=== PATIENT | female | born 1975 | race Caucasian/White ===

== ENCOUNTER 2021-07-09 07:26 | Emergency (ER) | payer BC ==
[~2021-07-09] VITALS: Ht 170.2 cm; Wt 83.9 kg
[~2021-07-09 07:26] MED LIST: ALBU90OI INH; ALPR.25 PO; BENZ100A PO; CEFA500 PO; CLON.1 PO; CLON1 PO; CODGUAEL PO; CONEST1.25 PO; Cyclobenzaprine5 MG PO; ERGO50000 PO; FERR325 PO; FLUO20 PO; HYDACE5 PO; HYDACE5325 PO; HYDPAM50 PO; IBUP200 PO; KETO10 PO; LORA.5 PO; Levaquin500 MG PO; MUCINEX DM PO; Monodox100 MG PO; Mucinex600 MG PO; Norco 5-325 Ta1 EACH PO; PHENA200 PO; Prednisone10 MG PO; Prednisone20 MG PO; SULTRIDS PO; TRAZ100 PO; TRAZ50 PO; Zithromax250 MG PO; Zofran Odt4 MG SL
[2021-07-09] MEDS ORDERED: PRED20 PO (07:36)
[2021-07-09] MEDS ORDERED: AZIT250 PO (07:36)
[2021-07-09] MEDS ORDERED: TRAZ50 PO (07:36)
[2021-07-09] MEDS ORDERED: Ventolin/Prove6.7 GM INH (07:36)
[2021-07-09] MEDS ORDERED: CODEINE-GUAIFE120 M1 PO (09:17)
[2021-07-09] MEDS ORDERED: PSEUDOEPHEDRINE30 M1 PO (09:17)
== END 2021-07-09 09:39 | disposition home or self-care (01) ==
LOC: ER 07:26
DX: J06.9 Acute upper respiratory infection, unspecified (principal); Z91.048 Other nonmedicinal substance allergy status; Z88.8 Allergy status to other drugs, medicaments and biological substances; Z79.52 Long term (current) use of systemic steroids; Z79.899 Other long term (current) drug therapy
CPT/HCPCS: 71046; 99283-25; A9270

== ENCOUNTER 2021-07-14 19:55 | Emergency (ER) | payer BC ==
[~2021-07-14] VITALS: Ht 170.2 cm; Wt 85.7 kg
[~2021-07-14 19:55] MED LIST changes: +AZIT250 PO; +CODEINE-GUAIFE120 M1 PO; +PRED20 PO; +PSEUDOEPHEDRINE30 M1 PO; +Ventolin/Prove6.7 GM INH
[2021-07-14] MEDS ORDERED: AMOCLA875 PO ×2 (20:14→20:23)
== END 2021-07-14 20:39 | disposition home or self-care (01) ==
LOC: ER 19:55
DX: J32.9 Chronic sinusitis, unspecified (principal); F17.210 Nicotine dependence, cigarettes, uncomplicated; Z88.8 Allergy status to other drugs, medicaments and biological substances; Z91.048 Other nonmedicinal substance allergy status
CPT/HCPCS: 99282; A9270

== ENCOUNTER 2022-02-15 12:11 | Emergency (ER) | payer BC ==
[~2022-02-15] VITALS: Ht 170.2 cm; Wt 79.8 kg
[~2022-02-15 12:11] MED LIST changes: +AMOCLA875 PO
== END 2022-02-15 14:41 | disposition home or self-care (01) ==
LOC: ER 12:11
DX: U07.1 COVID-19 (principal); R00.2 Palpitations; Z88.8 Allergy status to other drugs, medicaments and biological substances; Z91.048 Other nonmedicinal substance allergy status; F17.200 Nicotine dependence, unspecified, uncomplicated
CPT/HCPCS: 36415; 71045; 93005; 93010; 99285-25

== ENCOUNTER → 2023-11-26 | Outpatient (CLI) | payer BC | END | disposition home or self-care (01) | LOC: LAB SHORT 16:24 → LAB 16:24 | DX: R30.0 Dysuria (principal) | CPT/HCPCS: 87077; 87086; 87186 ==